=== PATIENT | female | born 1960 | race Caucasian/White ===

== ENCOUNTER → 2020-12-07 | Outpatient (CLI) | payer OTHER ==
[~2020-12-07] MED LIST: ISOVUE-370 76% 100ML VIAL As Ordered ONE
--- NOTE | 2020-12-07 11:09 | REP ---
INDICATION: PAD COMPARISON: None TECHNIQUE: Axial contrast-enhanced images from the lung bases through the bilateral lower extremities using angiographic technique. Multi planer reformations were obtained along with post processing to create aortogram and bilateral lower extremity arterial runoff images. This CT examination was performed using the following dose reduction techniques: Automated exposure control, adjustment of mA and/or kv according to the patient's size, and use of iterative reconstruction technique. FINDINGS: Abdominal aorta demonstrates [id number] partially calcified atheromatous plaquing which extends to the level of the internal and external iliac arteries including a small focus of atheromatous plaquing involving the left main renal artery. The abdominal aorta is without aneurysm or dissection. There is normal appearance to the origins and visualized portions of the celiac axis, superior mesenteric artery, bilateral solitary renal arteries and inferior mesenteric artery. Subsequent areas of moderate narrowing identified at the level of the proximal common iliac arteries (right greater than left) with subsequent normal symmetric appearance to the external iliac arteries. Small focal areas of partially calcified atheromatous plaquing is then again identified at the level of the bilateral common femoral artery. Right lower extremity arterial vessels beyond the common femoral artery demonstrate normal caliber, lumen and enhancement with normal trifurcation at the popliteal and normal three-vessel runoff to the level of the proximal ankle at which point a diminutive peroneal arteries identified with visible flow through the anterior and posterior tibial arteries. Left lower extremity arterial vessels beyond the common femoral artery demonstrate normal caliber, lumen and enhancement with normal trifurcation at the popliteal and normal three-vessel runoff through the ankle with visible flow through the anterior and posterior tibial arteries and peroneal artery. Lung bases demonstrate advanced COPD/emphysematous changes. Liver, spleen, pancreas, bilateral adrenal glands and kidneys are normal for arterial enhancement pattern. Evidence for prior cholecystectomy. The enteric system is unremarkable and without obstruction or acute inflammatory process. Normal terminal ileum and appendix identified in the right lower quadrant. Sigmoid diverticulosis noted without acute diverticulitis. Pelvis demonstrates normal bladder and evidence for prior hysterectomy.. No ascites. No free air. No adenopathy. No focal inflammatory stranding. Abdominal aorta without aneurysm. Degenerative changes through the lower lumbosacral spine noted. IMPRESSION: 1. Moderate atherosclerotic changes of the aorta and iliac arteries with possible areas of stenosis suggested involving the right iliac artery. 2. Essentially normal arterial supply to the bilateral lower extremities as noted above. 3. COPD/emphysematous disease. 4. Sigmoid diverticulosis without acute diverticulitis. <Electronically signed by Octaviano Mendez > 12/07/20 [id number]
== END ==
LOC: M RAD 09:45
PROVIDERS: ATTEND Internal Medicine Cardiovascular Disease
DX: J44.9 Chronic obstructive pulmonary disease, unspecified (principal); I25.810 Atherosclerosis of coronary artery bypass graft(s) without angina pectoris